=== PATIENT | female | born 1990 | race Caucasian/White ===

== ENCOUNTER 2017-07-17 21:44 | Emergency (ER) | payer BC ==
[~2017-07-17] VITALS: Ht 165.1 cm; Wt 59.5 kg
[~2017-07-17 21:44] MED LIST: NO HOME MEDICATIONS; ZOFRAN 4MG T4 MG/TAB PO
[2017-07-17 21:48] VITALS: BP 135/85; TEMP 98.1
[2017-07-17 23:59] VITALS: PULSE 85
== END 2017-07-18 | disposition home or self-care (01) ==
LOC: COL.ER 21:44
DX: S20.222A Contusion of left back wall of thorax, initial encounter (principal); W01.10XA Fall on same level from slipping, tripping and stumbling with subsequent striking against unspecified object, initial encounter; Y92.009 Unspecified place in unspecified non-institutional (private) residence as the place of occurrence of the external cause

== ENCOUNTER 2018-07-15 02:53 | Emergency (ER) | payer SELFPAY ==
[~2018-07-15] VITALS: Ht 165.1 cm; Wt 61.4 kg
[2018-07-15 02:59] VITALS: BP 137/78; TEMP 98.3
[2018-07-15] MEDS ORDERED: FLEXERIL 1010 MG/TAB PO (03:01)
[2018-07-15] MEDS ORDERED: CEPHALEXIN500 M1 PO (05:33)
[2018-07-15 05:58] VITALS: PULSE 80
== END 2018-07-15 06:00 | disposition home or self-care (01) ==
LOC: COL.ER 02:53
DX: S81.012A Laceration without foreign body, left knee, initial encounter (principal); Z23 Encounter for immunization; W17.89XA Other fall from one level to another, initial encounter; W22.8XXA Striking against or struck by other objects, initial encounter; Y92.009 Unspecified place in unspecified non-institutional (private) residence as the place of occurrence of the external cause
CPT/HCPCS: L1846

== ENCOUNTER 2018-07-24 15:13 | Emergency (ER) | payer SELFPAY ==
[~2018-07-24 15:13] MED LIST changes: +CEPHALEXIN500 M1 PO; +FLEXERIL 1010 MG/TAB PO
[2018-07-24 15:27] VITALS: BP 121/81; PULSE 74; TEMP 98.2
== END 2018-07-24 15:29 | disposition home or self-care (01) ==
LOC: COL.ER 15:13
DX: S81.012D Laceration without foreign body, left knee, subsequent encounter (principal)

== ENCOUNTER 2021-02-03 11:58 | Emergency (ER) | payer SELFPAY ==
[~2021-02-03] VITALS: Ht 165.1 cm; Wt 64.5 kg
[2021-02-03 12:04] VITALS: TEMP 98.4
[2021-02-03 12:39] LABS: BASO % 0.1 % (0.0-2.0); EOS # 0.1 (0.0-0.7); EOS % 0.3 % (0-4.0); GRAN # 11.3 (1.4-6.5); GRAN % 77.9 % (42.2-75.2); HEMATOCRIT 43.5 % (37.0-47.0); LYMPH # 2.2 (1.2-3.4); LYMPH % 15.2 % (20.0-51.0); MEAN CELL VOLUME 94 fl (80.0-100.0); MEAN CORPUSCULAR HEMOGLOBIN 32 pg (27.0-31.0); MEAN CORPUSCULAR HGB CONC 35 g/dl (33.0-37.0); MEAN PLATELET VOLUME 10.5 fl (7.4-10.4); MONO # 0.9 (0.1-0.6); MONO % 6.1 % (1.7-9.3); PLATELET COUNT 332 K/mm3 (130-400); RED BLOOD COUNT 4.64 M/mm3 (4.10-5.30); REDCELL DISTRIBUTION WIDTH-CV 12.5 % (11.5-14.5)
[2021-02-03 12:42] LABS: ALANINE AMINOTRANSFERASE 11 U/L (4-34); ALBUMIN 4.8 gm/dL (3.5-5.0); ALKALINE PHOSPHATASE 63 U/L (50-136); ANION GAP 12 mmol/L (7-16); AST,SGOT 22 U/L (15-37); BILIRUBIN,TOTAL 0.7 mg/dL (0.0-1.0); BLOOD UREA NITROGEN 10 mg/dL (7-17); CALCIUM 9.5 mg/dL (8.4-10.2); CARBON DIOXIDE 20 mmol/L (22-30); CHLORIDE 109 mmol/L (98-107); CREATININE, serum 0.62 (0.52-1.25); GLUCOSE 116 mg/dL (74-106); LIPASE 68 U/L (23-300); POTASSIUM 3.8 mmol/L (3.4-5.0); SODIUM 141 mmol/L (137-145); TOTAL PROTEIN 7.6 gm/dL (6.4-8.2)
[2021-02-03 12:43] LABS: C-REACTIVE PROTEIN < 0.5 mg/dL (0.0-0.9)
[2021-02-03 13:10] LABS: COLLECTION METHOD CLEAN CATCH
[2021-02-03 13:24] LABS: MUCOUS Present /lpf; PH 5 (5-8); URINE APPEARANCE Hazy; URINE BACTERIA None Seen /hpf; URINE BILIRUBIN Negative (NEGATIVE); URINE BLOOD Negative (NEGATIVE); URINE COLOR Yellow; URINE GLUCOSE Negative (NEGATIVE); URINE KETONE 2+ (NEGATIVE); URINE LEUKOCYTE ESTERASE Negative (NEGATIVE); URINE NITRATE Negative (NEGATIVE); URINE PROTEIN(semi-quant) 2+ (NEGATIVE)
[2021-02-03 14:07] VITALS: BP 117/68; PULSE 52
== END 2021-02-03 14:07 | disposition home or self-care (01) ==
LOC: COL.ER 11:58
PROVIDERS: Family Medicine
DX: R10.10 Upper abdominal pain, unspecified (principal); F17.210 Nicotine dependence, cigarettes, uncomplicated; Z32.02 Encounter for pregnancy test, result negative
CPT/HCPCS: C9113; J1885; J2270; J2405; J7120; Q9967

== ENCOUNTER 2021-06-29 13:58 | Emergency (ER) | payer SELFPAY ==
[~2021-06-29] VITALS: Ht 165.1 cm; Wt 61.4 kg
[2021-06-29 14:03] VITALS: TEMP 98.5
[2021-06-29 14:38] LABS: BASO % 0.3 % (0.0-2.0); EOS # 0.1 (0.0-0.7); EOS % 0.6 % (0-4.0); GRAN # 7.9 (1.4-6.5); GRAN % 65.8 % (42.2-75.2); HEMOGLOBIN 13.9 g/dl (12.5-16.0); LYMPH # 3.4 (1.2-3.4); MEAN CELL VOLUME 92 fl (80.0-100.0); MEAN CORPUSCULAR HEMOGLOBIN 31 pg (27.0-31.0); MEAN CORPUSCULAR HGB CONC 34 g/dl (33.0-37.0); MEAN PLATELET VOLUME 10.8 fl (7.4-10.4); MONO # 0.6 (0.1-0.6); MONO % 5.1 % (1.7-9.3); PLATELET COUNT 281 K/mm3 (130-400); RED BLOOD COUNT 4.45 M/mm3 (4.10-5.30); REDCELL DISTRIBUTION WIDTH-CV 12.6 % (11.5-14.5)
[2021-06-29 14:42] LABS: COLLECTION METHOD CLEAN CATCH
[2021-06-29 14:48] LABS: ALBUMIN 3.7 gm/dL (3.5-5.0); BILIRUBIN,TOTAL 0.3 mg/dL (0.0-1.0); C-REACTIVE PROTEIN 0.6 mg/dL (0.0-0.9); CALCIUM 8.9 mg/dL (8.4-10.2); CREATININE, serum 0.6 (0.52-1.25); POTASSIUM 3.6 mmol/L (3.4-5.0); TOTAL PROTEIN 5.9 gm/dL (6.4-8.2)
[2021-06-29 15:47] LABS: PH 5 (5-8); URINE APPEARANCE Clear; URINE COLOR Yellow; URINE PROTEIN(semi-quant) Negative (NEGATIVE)
[2021-06-29 15:48] LABS: URINE BILIRUBIN Negative (NEGATIVE); URINE GLUCOSE Negative (NEGATIVE); URINE KETONE Negative (NEGATIVE); URINE UROBILINOGEN Negative (NEGATIVE)
[2021-06-29 15:49] LABS: URINE BLOOD Negative (NEGATIVE); URINE LEUKOCYTE ESTERASE Negative (NEGATIVE); URINE NITRATE Negative (NEGATIVE); URINE RBC 0-2 /hpf
[2021-06-29 15:50] LABS: URINE BACTERIA Rare /hpf
[2021-06-29 17:20] VITALS: BP 111/71; PULSE 57
== END 2021-06-29 17:23 | disposition home or self-care (01) ==
LOC: COL.ER 13:58
PROVIDERS: Nurse Practitioner
DX: R10.31 Right lower quadrant pain (principal)
CPT/HCPCS: J2270; J2405; J7030; Q9967

== ENCOUNTER 2021-07-01 11:13 | Emergency (ER) | payer SELFPAY ==
[~2021-07-01] VITALS: Ht 165.1 cm; Wt 59.1 kg
[2021-07-01 11:46] VITALS: TEMP 98.2
[2021-07-01 12:07] LABS: COLLECTION METHOD CLEAN CATCH
[2021-07-01 12:17] LABS: BASO % 0.2 % (0.0-2.0); EOS # 0.3 (0.0-0.7); EOS % 2.1 % (0-4.0); GRAN # 7.4 (1.4-6.5); GRAN % 61.2 % (42.2-75.2); HEMOGLOBIN 12.5 g/dl (12.5-16.0); LYMPH # 3.8 (1.2-3.4); MEAN CELL VOLUME 93 fl (80.0-100.0); MEAN CORPUSCULAR HEMOGLOBIN 31 pg (27.0-31.0); MEAN CORPUSCULAR HGB CONC 34 g/dl (33.0-37.0); MEAN PLATELET VOLUME 11.1 fl (7.4-10.4); MONO # 0.6 (0.1-0.6); MONO % 5.3 % (1.7-9.3); PLATELET COUNT 233 K/mm3 (130-400); REDCELL DISTRIBUTION WIDTH-CV 12.8 % (11.5-14.5)
[2021-07-01 12:23] LABS: ALANINE AMINOTRANSFERASE 10 U/L (4-34); ALBUMIN 3.4 gm/dL (3.5-5.0); ALKALINE PHOSPHATASE 32 U/L (50-136); ANION GAP 4 mmol/L (7-16); AST,SGOT 20 U/L (15-37); BILIRUBIN,TOTAL < 0.1 mg/dL (0.0-1.0); BLOOD UREA NITROGEN 12 mg/dL (7-17); CALCIUM 8.6 mg/dL (8.4-10.2); CARBON DIOXIDE 25 mmol/L (22-30); CHLORIDE 107 mmol/L (98-107); CREATININE, serum 0.64 (0.52-1.25); GLUCOSE 95 mg/dL (74-106); LIPASE 43 U/L (23-300); POTASSIUM 3.8 mmol/L (3.4-5.0); SODIUM 135 mmol/L (137-145); TOTAL PROTEIN 5.4 gm/dL (6.4-8.2)
[2021-07-01 12:23] LABS: MUCOUS Present /lpf; PH 6 (5-8); SQUAMOUS EPITHELIAL 0-2 /hpf; URINE APPEARANCE Clear; URINE BACTERIA None Seen /hpf; URINE BILIRUBIN Negative (NEGATIVE); URINE BLOOD Negative (NEGATIVE); URINE COLOR Yellow; URINE GLUCOSE Negative (NEGATIVE); URINE KETONE Negative (NEGATIVE); URINE LEUKOCYTE ESTERASE Negative (NEGATIVE); URINE NITRATE Negative (NEGATIVE); URINE PROTEIN(semi-quant) Negative (NEGATIVE); URINE RBC 0-2 /hpf; URINE UROBILINOGEN Negative (NEGATIVE)
[2021-07-01] MEDS ORDERED: ZOFRAN ODT4 MG PO (14:57)
[2021-07-01] MEDS ORDERED: BENTYL 10MG10 MG/CAP PO (14:57)
[2021-07-01 15:15] VITALS: BP 110/68; PULSE 60
== END 2021-07-01 15:20 | disposition home or self-care (01) ==
LOC: COL.ER 11:13
PROVIDERS: Emergency Medicine
DX: R10.9 Unspecified abdominal pain (principal); Z32.02 Encounter for pregnancy test, result negative
CPT/HCPCS: J1885; J2060; J2405; J3010; J7120

== ENCOUNTER 2021-10-25 03:36 | Emergency (ER) | payer SELFPAY ==
[~2021-10-25] VITALS: Ht 165.1 cm; Wt 55.9 kg
[~2021-10-25 03:36] MED LIST changes: +BENTYL 10MG10 MG/CAP PO; +ZOFRAN ODT4 MG PO
[2021-10-25 03:39] VITALS: BP 112/80; PULSE 87; TEMP 97.2
[2021-10-25] MEDS ORDERED: FLOXIN OTIC DROP5 ML OT (03:59)
[2021-10-25] MEDS ORDERED: CLEOCIN HC150 MG/CAP PO (03:59)
== END 2021-10-25 04:36 | disposition home or self-care (01) ==
LOC: COL.ER 03:36
DX: K08.89 Other specified disorders of teeth and supporting structures (principal); H72.92 Unspecified perforation of tympanic membrane, left ear; F17.210 Nicotine dependence, cigarettes, uncomplicated
CPT/HCPCS: J1885

== ENCOUNTER 2022-01-29 06:32 | Emergency (ER) | payer SELFPAY ==
[~2022-01-29] VITALS: Ht 165.1 cm; Wt 60.0 kg
[~2022-01-29 06:32] MED LIST changes: +CLEOCIN HC150 MG/CAP PO; +FLOXIN OTIC DROP5 ML OT
[2022-01-29 06:41] VITALS: BP 146/81; TEMP 98.1
[2022-01-29] MEDS ORDERED: NAPROSYN500 MG PO (07:05)
[2022-01-29] MEDS ORDERED: PEN-VEE K500 MG PO (07:05)
[2022-01-29 07:15] VITALS: PULSE 75
== END 2022-01-29 07:15 | disposition home or self-care (01) ==
LOC: COL.ER 06:32
DX: K08.89 Other specified disorders of teeth and supporting structures (principal); Z91.040 Latex allergy status
CPT/HCPCS: J1885